=== PATIENT | female | born 1975 | race Caucasian/White ===

== ENCOUNTER → 2023-12-28 11:06 | Outpatient (REF) | payer OTHER, SELFPAY | LOC: HWRAD 11:06 | PROVIDERS: ATTENDING PHYSICIAN Obstetrics & Gynecology; FAMILY PHYSICIAN Student in an Organized Health Care Education/Training Program | DX: N93.9 Abnormal uterine and vaginal bleeding, unspecified (principal); N95.1 Menopausal and female climacteric states | CPT/HCPCS: 76830; 76856 ==

== ENCOUNTER 2024-01-19 06:41 | Emergency (ER) | payer OTHER, SELFPAY ==
[2024-01-19 06:49] VITALS: BP 164/110
[2024-01-19 07:08] VITALS: BP 152/89
--- NOTE | 2024-01-19 07:36 | ED.GENMED ---
History of Present Illness
General
Chief Complaint: Chest Problem
Time Seen by Provider: 01/19/24 07:31
History of Present Illness
History of Present Illness:
HPI: The patient presents with headache, chest discomfort, some shortness of breath general unwell feeling, feeling of warmth, pins and needle sensation to both upper extremities, and was also concerned because of high blood pressure readings at
home. This started about a week ago. She has had headaches described as migraines in the past but these headaches are now different. at bedside suspects an anxiety component.
EXAM:
GENERAL: The patient appears very anxious and is tearful
HEENT: Moist oral mucosa
CARDIOVASCULAR: No murmurs, normal heart rate, regular rhythm, No chest wall tenderness
PULMONARY: No respiratory distress, breath sounds are clear and equal
ABDOMEN: Soft with no peritoneal signs, no tenderness
NEUROLOGIC: Excellent strength all extremities, no coordination deficits, normal sensation
PSYCHIATRIC: Tearful and anxious and appears
EXTREMITIES: Nontender, no edema, moves all extremities equally
SKIN: No rash, no lesions
TIME OF INITIAL ENCOUNTER: 7:55 AM
NUMBER AND COMPLEXITY OF PROBLEMS ADDRESSED AT THE ENCOUNTER
� Chronic conditions affecting care: IBS
� Acute Exacerbation and/or Progression of Chronic Illness: This is an acute problem
� Differential Diagnosis includes: Anxiety, intracranial pathology, dysrhythmia, ACS very unlikely, electrolyte abnormality
AMOUNT AND/OR COMPLEXITY OF DATA TO BE REVIEWED AND ANALYZED
� I performed an independent evaluation of and my interpretation is:
EKG: Sinus 85, normal axis, no acute ST abnormality no significant change from EKG on 10/28/2010
CT: Brain CT showed no acute abnormality
X-rays:
Laboratory Studies: CBC unremarkable, bicarb is slightly low, thyroid normal, other chemistries and
Other:
� Review of other/old records: Basic blood work including troponin was normal in 2010
� Clinical information was obtained by an independent historian: I spoke to the at bedside
� Prescriptions/Medications Considered but not given:
� Further testing considered but not performed:
RISK OF COMPLICATIONS AND/OR MORBIDITY OR MORTALITY OF PATIENT MANAGEMENT
� Social determinants of health affecting care: Lives at home with
� Discussion with other providers:
� Escalation of care including admission/observation vs risk of discharge considered: Strong suspect anxiety component. Will try Ativan. Given the new headache described as different from prior migraines, CT imaging of the
brain will be obtained and Tylenol was also given. Bicarb slightly low suggestive of hyperventilation. On reassessment at 11 AM, headache persists however overall she is proved. Strongly suspect anxiety component. We talked about trying to limit
benzo and alcohol use at home. We also talked about the possibly using cognitive behavioral therapy but it sounds like she has used this in the past without much success. She is also not improved on other nonbenzo meds for anxiety/depression.
Past History
Past History
ED Past Medical History: NIDDM
ED Past Surgical History:
Social History
Personal:
Living: with family
Phy Exam
Physical Exam
Physical Exam:
See HPI
Course
Orders/Labs/Results
Orders:
Orders
01/19/24 06:55
EKG [Electrocardiogram (*1)] Urgent
Reason for Study: Chest Pain
01/19/24 06:56
EKG- Treatment ONCE
01/19/24 07:58
CT Head W/o Iv Contrast Urgent
Comment:
Reason For Exam: new severe DUVAL
Acetaminophen [Tylenol] 1,000 mg PO NOW STA
01/19/24 08:00
Lorazepam [Ativan] 1 mg IV NOW STA
01/19/24 08:11
Complete Blood Count/With Diff Urgent
Comprehensive Metabolic Panel Urgent
D-Dimer Urgent
TSH Reflex To Free T4 Urgent
Troponin I Urgent
Abnormal Lab Results
01/19/24
08:11
WBC 4.1 L 10^3/uL
(4.8-10.8)
MCH 32.9 H pg
(27.0-31.0)
Carbon Dioxide 18 L mmol/L
(22-30)
AST 42 H U/L
(14-36)
01/19/24 08:11
01/19/24 08:11
Vital Signs
Initial and Last Documented VS:
Initial Vital Signs
Temp Pulse Resp BP Pulse Ox
99.0 F 94 18 164/110 100
01/19/24 06:49 01/19/24 06:49 01/19/24 06:49 01/19/24 06:49 01/19/24 06:49
Last Documented Vital Signs
Temp Pulse Resp BP Pulse Ox
99.0 F 92 16 125/78 98
01/19/24 06:49 01/19/24 10:06 01/19/24 10:06 01/19/24 10:06 01/19/24 10:06
*Critical Care Note
Total Time (30-74mins, 75-104mins- exclusive of procedures): Not Applicable
ED Attending Note
-
Portions of this chart may have been created with voice recognition software.� Occasional wrong word or��sound alike� substitutions may have occurred due to the inherent limitations of voice recognition software.
Discharge Plan
Departure
Patient Disposition: Home (Routine Discharge)
Date of Disposition: 01/19/24
Time of Disposition: 11:25
Patient with high blood pressure during this ER visit?: Yes
Discharge Problem:
Anxiety
Instructions: Chest Pain (DC)
Prescriptions:
No Action
B/C Pill
PO .DAILY DIRECTED
alprazolam 0.25 MG tablet
0.25 mg PO BIDPRN PRN (Reason: anxiety)
oxycodone-acetaminophen [Percocet] 1 EACH tablet
1 - 2 ea PO Q4HPRN PRN (Reason: prn for severe pain) Qty: 20 0RF
diazepam 5 MG tablet
5 mg PO TIDPRN PRN (Reason: Pain, spasm) Qty: 12 0RF
Referrals:
Loli Higgins MD [Family Provider] -
Stand Alone Forms: Return to Work
Activity Restrictions/Additional Instructions:
Blood work shows no sign of heart attack or blood clot in the lung. Thyroid testing and other basic labs are normal. Head CT does not show any acute abnormality. EKG is unremarkable. We did give a one-time dose of Ativan. Try to limit use of
Xanax and alcohol at home. Consider looking into cognitive behavioral therapy further management of anxiety. Return here if worse.
Interventions
Interventions:
*Risk Screen - Suicide Last Done: 01/19/24 07:19
*General Assessment Last Done: 01/19/24 07:19
*Neglect/Abuse Screening Last Done: 01/19/24 07:19
*ED COVID-19 Vaccine History Last Done: 01/19/24 07:19
ED- Cardiac Assessment Last Done: 01/19/24 07:19
ED- Pulmonary Assessment Last Done: 01/19/24 07:19
Discharge Date and Time
Print Language: SPANISH
[2024-01-19 08:00] VITALS: BP 140/77
[2024-01-19] MEDS: TYLENOL 1000 MG PO (08:14)
[2024-01-19] MEDS: ATIVAN 1 MG IV (08:14)
[2024-01-19 08:27] LABS: % Eosinophils 3.9 % (0-6); % Immature Granulocytes 0.5 % (0-0.5); % Monocytes 8.2 % (1.7-9.3); % Neutrophils 49.4 % (42.2-75.2); Absolute Eosinophils 0.2 10^3/uL (0-0.7); Absolute Lymphocytes 1.5 10^3/uL (1.2-3.4); Absolute Monocytes 0.3 10^3/uL (0.1-0.6); Hematocrit 39.2 % (37.0-47.0); Hemoglobin 14.5 g/dL (12.0-16.0); Mean Corpuscular Hgb 32.9 pg (27.0-31.0); Mean Corpuscular Volume 88.9 fL (81.0-99.0); Mean Platelet Volume 8.8 fL (7.4-10.4); Nucleated Red Blood Cells % 0 %; Platelet Count 246 10^3/uL (130-400); Red Blood Cell Count 4.41 10^6/uL (4.20-5.40); Red Cell Dist. Width 12.8 % (11.5-14.5); White Blood Cell Count 4.1 10^3/uL (4.8-10.8)
[2024-01-19 08:46] LABS: D-Dimer < 0.27 ug/mlFEU (0.00-0.50)
[2024-01-19 08:51] LABS: ALT (SGPT) 34 U/L (0-35); AST (SGOT) 42 U/L (14-36); Alkaline Phosphatase 66 U/L (38-126); Blood Urea Nitrogen 16 mg/dl (7-17); Calcium 9.9 mg/dl (8.4-10.2); Carbon Dioxide 18 mmol/L (22-30); Chloride 106 mmol/L (98-107); Glucose 92 mg/dl (70-99); Potassium 3.6 mmol/L (3.5-5.1); Sodium 139 mmol/L (135-145); Total Bilirubin 1.1 mg/dl (0.2-1.3); Total Protein 7.7 g/dl (6.3-8.2); eGFR > 60.00
[2024-01-19 09:03] LABS: Troponin I < 0.012 ng/ml
[2024-01-19 10:06] VITALS: BP 125/78
[2024-01-19 11:00] VITALS: BP 126/74
== END 2024-01-19 11:55 | disposition home or self-care (01) ==
LOC: EMR 06:41
PROVIDERS: EMERGENCY PHYSICIAN Emergency Medicine; FAMILY PHYSICIAN Student in an Organized Health Care Education/Training Program
DX: F41.9 Anxiety disorder, unspecified (principal); R07.89 Other chest pain; R51.9 Headache, unspecified; R06.02 Shortness of breath; R03.0 Elevated blood-pressure reading, without diagnosis of hypertension; E11.9 Type 2 diabetes mellitus without complications; Z91.041 Radiographic dye allergy status; Z91.040 Latex allergy status
CPT/HCPCS: 99284; 96374; 70450; 80053; 84443; 84484; 85025; 85379; 93005

== ENCOUNTER 2024-03-18 21:25 | Emergency (ER) | payer OTHER, SELFPAY ==
[2024-03-18 21:26] VITALS: BP 167/105
[2024-03-18 21:45] VITALS: BP 156/115
[2024-03-18 21:46] LABS: % Basophils 0.8 % (0-2); % Immature Granulocytes 0.3 % (0-0.5); % Lymphocytes 43.6 % (20.5-51.1); % Monocytes 7.6 % (1.7-9.3); % Neutrophils 42.7 % (42.2-75.2); Absolute Basophils 0.1 10^3/uL (0-0.2); Absolute Eosinophils 0.3 10^3/uL (0-0.7); Absolute Lymphocytes 2.9 10^3/uL (1.2-3.4); Absolute Monocytes 0.5 10^3/uL (0.1-0.6); Absolute Neutrophils 2.8 10^3/uL (1.4-6.5); Mean Corp Hgb Conc. 36.8 g/dL (33.0-37.0); Mean Corpuscular Hgb 32.6 pg (27.0-31.0); Mean Corpuscular Volume 88.6 fL (81.0-99.0); Mean Platelet Volume 8.6 fL (7.4-10.4); Nucleated Red Blood Cells % 0 %; Platelet Count 280 10^3/uL (130-400); Red Blood Cell Count 4.29 10^6/uL (4.20-5.40); Red Cell Dist. Width 12.4 % (11.5-14.5); White Blood Cell Count 6.6 10^3/uL (4.8-10.8)
[2024-03-18 22:01] LABS: HCG, Serum Qualitative Screen Negative
[2024-03-18 22:11] LABS: ALT (SGPT) 38 U/L (0-35); AST (SGOT) 45 U/L (14-36); Albumin 5.1 g/dl (3.5-5.0); Alcohol 228 mg/dl; Alkaline Phosphatase 82 U/L (38-126); Blood Urea Nitrogen 18 mg/dl (7-17); Calcium 10.1 mg/dl (8.4-10.2); Carbon Dioxide 13 mmol/L (22-30); Chloride 104 mmol/L (98-107); Glucose 116 mg/dl (70-99); Potassium 3.8 mmol/L (3.5-5.1); Sodium 145 mmol/L (135-145); Total Bilirubin 0.4 mg/dl (0.2-1.3); Total Protein 7.8 g/dl (6.3-8.2); eGFR > 60.00
[2024-03-18 23:09] VITALS: BP 133/94
--- NOTE | 2024-03-18 23:15 | ED.GENMED ---
History of Present Illness
General
Chief Complaint: Headache
Source: patient
Exam Limitations: none
Time Seen by Provider: 03/18/24 23:07
Nursing documentation reviewed up to this point in time: agreed with
History of Present Illness
History of Present Illness:
48-year-old female presents emergency room complaining of headache right-sided. This began tonight. She states she had a few drinks at a restaurant. She has seen a neurologist in the past.
Past History
Past History
ED Past Medical History: NIDDM
ED Past Surgical History:
Social History
Alcohol: Binge drinker
Personal:
Living: with family
Review of Systems
Review of Systems
Allergies reviewed?: Yes
All Other Systems: Not applicable
Constitutional: Reports no symptoms
EENT: Reports no symptoms
Respiratory: Reports no symptoms
Cardiac: Reports no symptoms
ABD/GI: Reports no symptoms
: Reports no symptoms
Musculoskeletal: Reports no symptoms
Skin: Reports no symptoms
Neurological: Reports headache
Endocrine: Reports no symptoms
Hematologic/Lymphatic: Reports no symptoms
Psychiatric: Reports no symptoms
Phy Exam
Physical Exam
Physical Exam:
Physical Exam
General: no apparent distress, not acutely ill, alcohol on breath
Neck: supple. no meningeal signs. normal posterior pharynx
Heart: s1/s2 regular rate and rhythm, no murmur. equal radial
pulses.
HEENT: Pupils equal round reactive to light, EOMI
Lungs: no acute respiratory distress. clear bilaterally
Abdomen: normal bowel sounds. not tender. no CVAT
Neuro: alert and oriented. no focal neurological deficits cranial nerves II through XII intact
Skin: no rash
Psychiatric: well kept. interactive and cooperative
Extremities: no edema. no calf tenderness. negative homans. good distal pulses
Course
Orders/Labs/Results
Orders:
Orders
03/18/24 21:39
CT Head W/o Iv Contrast Urgent
Comment: vision difficulties
Reason For Exam: severe headache for past 24 hours.
Test Result ONCE
03/18/24 21:41
Alcohol Urgent
Complete Blood Count/With Diff Urgent
Comprehensive Metabolic Panel Urgent
HCG, Serum Qualitative Screen Urgent
03/18/24 23:15
0.9% Sodium Chloride 1000 ml [Nss] 1,000 ml IV BOLUS
Diphenhydramine [Benadryl] 25 mg IV NOW STA
Metoclopramide [Reglan] 10 mg IV NOW STA
03/19/24 00:14
Dexamethasone Sod Phosphate [Decadron] 10 mg IV NOW STA
Ketorolac [Toradol] 15 mg IV NOW STA
Abnormal Lab Results
03/18/24
21:41
MCH 32.6 H pg
(27.0-31.0)
Carbon Dioxide 13 L* mmol/L
(22-30)
BUN 18 H mg/dl
(7-17)
Glucose 116 H mg/dl
(70-99)
AST 45 H U/L
(14-36)
ALT 38 H U/L
(0-35)
Albumin 5.1 H g/dl
(3.5-5.0)
03/18/24 21:41
03/18/24 21:41
Vital Signs
Initial and Last Documented VS:
Initial Vital Signs
Temp Pulse Resp BP Pulse Ox
98.2 F 121 18 167/105 99
03/18/24 21:26 03/18/24 21:26 03/18/24 21:26 03/18/24 21:26 03/18/24 21:26
Last Documented Vital Signs
Temp Pulse Resp BP Pulse Ox
98.2 F 92 14 133/94 97
03/18/24 21:26 03/18/24 23:15 03/18/24 23:09 03/18/24 23:09 03/18/24 23:09
MDM/Problems Addressed
Differential Diagnosis Includes:
Intracranial hemorrhage, migraine
MDM/Problems Addressed:
48-year-old female with migraine, alcohol intoxication.
Chronic conditions affecting care: Neurological disorder (Migraines)
Acute Exacerbation and/or Progression of Chronic Illness: Neurological disorder (Migraines)
*Radiology
Radiology exam reviewed: radiology read reviewed (CT head no acute findings)
*Pulse Oximetry
Patient hypoxic: no
*Critical Care Note
Total Time (30-74mins, 75-104mins- exclusive of procedures): Not Applicable
Patient Management
Social determinants of health affecting care: Living situation and Substance abuse
Escalation/DeEscalation of care consider admission/obs:
Admit not indicated
ED Attending Note
-
Portions of this chart may have been created with voice recognition software.� Occasional wrong word or��sound alike� substitutions may have occurred due to the inherent limitations of voice recognition software.
Discharge Plan
Departure
Patient Disposition: Home (Routine Discharge)
Date of Disposition: 03/19/24
Time of Disposition: 00:37
Patient with high blood pressure during this ER visit?: Yes
Condition: Good
Discharge Problem:
Headache, Alcohol intoxication
Instructions: Headache, Adult (DC), BLOOD PRESSURE
Prescriptions:
No Action
B/C Pill
PO .DAILY DIRECTED
alprazolam 0.25 MG tablet
0.25 mg PO BIDPRN PRN (Reason: anxiety)
oxycodone-acetaminophen [Percocet] 1 EACH tablet
1 - 2 ea PO Q4HPRN PRN (Reason: prn for severe pain) Qty: 20 0RF
diazepam 5 MG tablet
5 mg PO TIDPRN PRN (Reason: Pain, spasm) Qty: 12 0RF
Referrals:
Sergio Dick MD [Active] - Call in 1-3 days for appt
Loli Higgins MD [Family Provider] - Call in 1-3 days for appt
Interventions
Interventions:
*General Assessment Last Done: 03/18/24 23:16
*Neglect/Abuse Screening Last Done: 03/18/24 23:16
ED- Fall Risk Assessment Last Done: 03/18/24 22:33
ED- Neurological Assessment Last Done: 03/18/24 22:33
Discharge Date and Time
Print Language: THAI
[2024-03-18] MEDS: REGLAN 10 MG IV (23:31)
[2024-03-18] MEDS: NSS 1000 IV (23:31)
[2024-03-18] MEDS: BENADRYL 25 MG IV (23:31)
[2024-03-19] VITALS: BP 111/85
[2024-03-19] MEDS: TORADOL 15 MG IV (00:23)
[2024-03-19] MEDS: DECADRON 10 MG IV (00:23)
== END 2024-03-19 00:51 | disposition home or self-care (01) ==
LOC: EMR 21:25
PROVIDERS: EMERGENCY PHYSICIAN Emergency Medicine; FAMILY PHYSICIAN Student in an Organized Health Care Education/Training Program
DX: R51.9 Headache, unspecified (principal); F10.129 Alcohol abuse with intoxication, unspecified; R03.0 Elevated blood-pressure reading, without diagnosis of hypertension; E11.9 Type 2 diabetes mellitus without complications; K58.9 Irritable bowel syndrome, unspecified; Z86.16 Personal history of COVID-19; Z91.041 Radiographic dye allergy status; Z91.040 Latex allergy status
CPT/HCPCS: 99284; 96375 ×3; 96361; 96374; 70450; 80053; 82077; 84703; 85025

== ENCOUNTER → 2024-10-16 17:17 | Outpatient (REF) | payer OTHER, SELFPAY | LOC: WDC 17:17 | PROVIDERS: ATTENDING PHYSICIAN Obstetrics & Gynecology; FAMILY PHYSICIAN Student in an Organized Health Care Education/Training Program | DX: Z12.31 Encounter for screening mammogram for malignant neoplasm of breast (principal) | CPT/HCPCS: 77063; 77067 ==